=== PATIENT | male | born 1970 | race Caucasian/White ===

== ENCOUNTER 2017-09-18 13:48 | Inpatient (IN) ==
[~2017-09-18 13:48] MED LIST: EPINEPHrine 1 MG/10 ML SYRINGE ONE; SODIUM BICARBONATE 50 MEQ/50 ML SYRINGE IV ONE
[2017-09-18 13:55] LABS: ABG Base Excess -22.2 MMOL/L (-2.5-2.5); ABG HCO3 8.8 MMOL/L (20-26); ABG TCO2 17.7 MMOL/L (23-27)
[2017-09-18 13:56] LABS: ABG PH 6.772 (7.35-7.45)
[2017-09-18] MEDS ORDERED: NOREPINEPHRINE 8 MG in SODIUM CHLORIDE 0.9% 242 ML IV SCH (14:00)
[2017-09-18 14:18] LABS: Basophils % 0.3 % (0.0-0.8); Eosinophils # 0.1 10*3/uL (0.0-0.87); Eosinophils % 0.4 % (0.00-10.9); Hematocrit 33.5 VOL% (42.0-52.0); Hemoglobin 9.9 GM/DL (14.0-18.0); Immature Granulocytes % 6.4 %; Immature Granulocytes Absolute 0.77 #; Lymphocytes # 6.9 10*3/uL (1.4-4.0); Lymphocytes % 57.5 % (21.2-54.2); Mean Corpuscular HGB Conc 29.6 GM/DL (32-36); Mean Corpuscular Hemoglobin 31 PG (27-34); Mean Corpuscular Volume 106.3 FL (87-102); Mean Platelet Volume 11.5 FL (9.6-12.0); Monocytes # 0.6 10*3/uL (0.11-0.8); Monocytes % 4.8 % (1.7-12.7); NRBC # 0.06 10*3/uL; Neutrophils # 3.7 10*3/uL (1.4-7.4); Neutrophils % 30.6 % (38.7-73.9); Red Blood Count 3.15 MC/CUMM (3.8-5.5); Red Cell Distribution Width 14.9 % (9.3-17.3)
[2017-09-18 14:20] LABS: Platelet Count 83 T/CUMM (130-400)
[2017-09-18 14:43] LABS: Platelet Estimate Decreased
[2017-09-18 14:47] LABS: Alanine Aminotransferase 95 U/L (16-61); Albumin 2.8 G/DL (3.4-5.0); Alkaline Phosphatase 112 U/L (45-117); Aspartate Amino Transferase 134 U/L (0-37); Bilirubin,Total < 0.39 MG/DL (0.2-1.0); Blood Urea Nitrogen 14 MG/DL (7-18); Calcium 9.1 MG/DL (8.5-10.1); Glucose 119 MG/DL (74-106); Osmolality,Calculated 287.8 MOS/KG (273-304); Potassium 5.4 MMOL/L (3.5-5.1); Sodium 144 MMOL/L (136-145); Total Protein 6.9 G/DL (6.4-8.3)
[2017-09-18 14:48] LABS: Troponin I Only 0.101 NG/ML (0.00-0.045)
[2017-09-18] MEDS ORDERED: EPINEPHrine 1 MG/10 ML SYRINGE ONE (14:58)
[2017-09-18 15:02] LABS: Barbiturates Screen,Urine Positive (Negative); Benzodiazepines Screen,Urine Negative (Negative); Cannabinoid Screen,Urine Negative (Negative); Opiate Screen,Urine Negative (Negative); Phencyclidine Screen,Urine Negative (Negative)
[2017-09-18] MEDS ORDERED: FUROSEMIDE 40 MG/4 ML VIAL ONE (15:22)
[2017-09-18] MEDS ORDERED: ALBUTEROL 2.5 MG/3 ML NEB RESP TX PRN (15:32)
[2017-09-18] MEDS ORDERED: NOREPINEPHRINE 4 MG/4 ML VIAL IV ONE (15:39)
[2017-09-18] MEDS ORDERED: SODIUM BICARBONATE 50 MEQ/50 ML VIAL IV ONE (15:44)
[2017-09-18] MEDS ORDERED: FUROSEMIDE 40 MG/4 ML VIAL IV STA (15:46)
[2017-09-18] MEDS ORDERED: CALCIUM CHLORIDE 1,000 MG/10 ML SYRINGE IV ONE ×2 (15:47→16:48)
[2017-09-18 15:50] LABS: ABG Base Excess -14.3 MMOL/L (-2.5-2.5); ABG HCO3 18.7 MMOL/L (20-26); ABG Oxygen Saturation 98.2 % (95-100); ABG TCO2 21.4 MMOL/L (23-27)
[2017-09-18 15:51] LABS: ABG PCO2 89.9 MM HG (35-48); ABG PH 6.935 (7.35-7.45)
[2017-09-18] MEDS ORDERED: SODIUM CHLORIDE 0.9% 1,000 ML IV SCH (16:00)
[2017-09-18] MEDS ORDERED: PROPOFOL 1,000 MG/100 ML BOTTLE IV SCH (16:00)
[2017-09-18] MEDS ORDERED: ENOXAPARIN 40 MG/0.4 ML SYRINGE SUBCUT SCH (16:00)
[2017-09-18 16:18] LABS: Basophils % 0.3 % (0.0-0.8); Eosinophils % 0.3 % (0.00-10.9); Hematocrit 32.8 VOL% (42.0-52.0); Hemoglobin 9.9 GM/DL (14.0-18.0); Immature Granulocytes % 3.9 %; Immature Granulocytes Absolute 0.13 #; Lymphocytes # 2.5 10*3/uL (1.4-4.0); Mean Corpuscular HGB Conc 30.2 GM/DL (32-36); Mean Corpuscular Hemoglobin 31 PG (27-34); Mean Corpuscular Volume 103.5 FL (87-102); Mean Platelet Volume 10.5 FL (9.6-12.0); Monocytes # 0.1 10*3/uL (0.11-0.8); Monocytes % 3.3 % (1.7-12.7); NRBC # 0.06 10*3/uL; Neutrophils # 0.6 10*3/uL (1.4-7.4); Neutrophils % 18.2 % (38.7-73.9); Platelet Count 88 T/CUMM (130-400); Red Blood Count 3.17 MC/CUMM (3.8-5.5); Red Cell Distribution Width 14.9 % (9.3-17.3); White Blood Count 3.3 T/CUMM (4-12)
[2017-09-18 16:22] LABS: ABG Base Excess -8.6 MMOL/L (-2.5-2.5); ABG HCO3 20.6 MMOL/L (20-26); ABG Oxygen Saturation 53.7 % (95-100); ABG PCO2 61.5 MM HG (35-48); ABG PO2 41.5 MM HG (80-95); ABG TCO2 22.5 MMOL/L (23-27); Allen Test Positive; Pt O2 Delivery Device Ventilator
[2017-09-18 16:23] LABS: ABG PH 7.143 (7.35-7.45)
[2017-09-18] MEDS ORDERED: SODIUM BICARB INJ 150 MEQ in DEXTROSE 5% 850 ML IV SCH (16:30)
[2017-09-18 16:40] LABS: Eosinophils 1 % (0-10); Lymphocytes 70 % (20-55); Segmented Neutrophils 20 % (50-85); Total Cells Counted 100
[2017-09-18 16:41] LABS: INR 2.3; Platelet Estimate Decreased
[2017-09-18 16:42] LABS: PT Patient Result 23.4 SECS; Partial Thromboplastin Time 129.5 SECS (0-40)
[2017-09-18 16:43] LABS: Fibrinogen Quant Value < 50 MG% (200-400)
[2017-09-18] MEDS ORDERED: SODIUM BICARBONATE 50 MEQ/50 ML SYRINGE IV ONE (16:48)
[2017-09-18] MEDS ORDERED: EPINEPHrine 1 MG/ML VIAL ONE (16:49)
[2017-09-18 16:51] LABS: Lactic Acid 11.7 MMOL/L (0.4-2.0)
[2017-09-18 17:06] LABS: Alanine Aminotransferase 160 U/L (16-61); Albumin 1.4 G/DL (3.4-5.0); Alkaline Phosphatase 80 U/L (45-117); Amylase 573 U/L (25-115); Aspartate Amino Transferase 251 U/L (0-37); Bilirubin,Total < 0.39 MG/DL (0.2-1.0); Blood Urea Nitrogen 13 MG/DL (7-18); CKMB % 4.7 %; Calcium 7.5 MG/DL (8.5-10.1); Glucose 93 MG/DL (74-106); Magnesium 2.2 MG/DL (1.8-2.4); Osmolality,Calculated 295.1 MOS/KG (273-304); Potassium 4.9 MMOL/L (3.5-5.1); Sodium 149 MMOL/L (136-145); Total Protein 3.4 G/DL (6.4-8.3)
[2017-09-18 17:23] VITALS: BP 0/0
== END 2017-09-18 16:22 | disposition expired | DRG 154 ==
LOC: N.ED 13:48 → N.EDINP 15:12 → N.ICU 15:30
PROVIDERS: ADMIT Internal Medicine Nephrology; ATTEND Internal Medicine Nephrology